=== PATIENT | male | born 1960 | race African-American/Black ===

== ENCOUNTER 2021-06-14 20:08 | Emergency (ER) | payer SELFPAY ==
[~2021-06-14 20:08] MED LIST: Iopamidol 370 76% 100 ML VIAL ONE
[2021-06-14 20:37] LABS: #Basophils 0.1 thou/uL (0.0-0.2); #Eosinphils 0.1 thou/uL (0.0-0.7); #Lymphocytes 1.5 thou/uL (1.20-3.40); #Monocytes 0.3 thou/uL (0.11-0.59); #Neutrophils 2.9 thou/uL (1.40-6.50); %Basophils 1.3 % (0.0-1.0); %Eosinophils 1.6 % (0.0-10.0); %Lymphocytes 31.1 % (21.0-51.0); %Monocytes 6.6 % (0.0-10.0); %Neutrophils 59.4 % (42.0-75.0); Hemoglobin 14.3 g/dL (14.0-18.0); Mean Corpuscular HGB CONC 34.1 g/dL (32.0-36.0); Mean Corpuscular Hemoglobin 28.9 pg (27.0-31.0); Mean Corpuscular Volume 84.8 fL (78.0-98.0); Mean Platelet Volume 8.7 fL (7.4-10.4); Platelet Count 128 thou/uL (130-400); RBC Distribution Width 13.5 % (11.5-14.5); Red Blood Cell (RBC) Count 4.95 mill/uL (4.70-6.10); White Blood Cell (WBC) Count 4.9 thou/uL (4.8-10.8)
[2021-06-14 21:02] LABS: ALT (SGPT) 13 U/L (8-55); AST (SGOT) 22 U/L (5-34); Albumin 4.2 g/dL (3.5-5.0); Alkaline Phosphatase 54 U/L (40-110); Anion Gap 12 mmol/L (10-20); BUN (Urea Nitrogen) 15 mg/dL (8.4-25.7); Bilirubin, Total 0.4 mg/dL (0.2-1.2); Calc. Creatinine Clearance 0 mL/min (70-130); Calcium 9.4 mg/dL (7.8-10.44); Carbon Dioxide 26 mmol/L (22-29); Chloride 104 mmol/L (98-107); Globulin 3.3 g/dL (2.4-3.5); Glucose 136 mg/dL (70-105); Potassium 3.6 mmol/L (3.5-5.1); Protein, Total 7.5 g/dL (6.0-8.3); Sodium 138 mmol/L (136-145)
[2021-06-14] MEDS ORDERED: Acetaminophen 500 MG TAB ONE (22:31)
== END 2021-06-15 02:36 | disposition short-term general hospital (02) ==
LOC: ERS 20:08
DX: I24.9 Acute ischemic heart disease, unspecified (principal); R42 Dizziness and giddiness; I10 Essential (primary) hypertension
CPT/HCPCS: 70450; 71045; 71275; 74174; 80053; 84484; 85025; 93005; Q9967

== ENCOUNTER 2022-06-30 11:00 | Inpatient (IN) | payer BC, SELFPAY ==
[~2022-06-30 11:00] MED LIST changes: -Iopamidol 370 76% 100 ML VIAL ONE; +Iopamidol-370 76% 500 ML 1 ML ONE
[2022-06-30 11:26] LABS: #Lymphocytes 0.8 thou/uL (1.20-3.40); #Monocytes 0.4 thou/uL (0.11-0.59); #Neutrophils 4.6 thou/uL (1.40-6.50); %Basophils 0.8 % (0.0-1.0); %Eosinophils 0.1 % (0.0-10.0); %Monocytes 6.5 % (0.0-10.0); %Neutrophils 78.7 % (42.0-75.0); Hemoglobin 14.4 g/dL (14.0-18.0); Mean Corpuscular HGB CONC 34.9 g/dL (32.0-36.0); Mean Corpuscular Hemoglobin 29.5 pg (27.0-31.0); Mean Corpuscular Volume 84.5 fl (78.0-98.0); Mean Platelet Volume 8.9 fL (7.4-10.4); Platelet Count 145 10x3/uL (130-400); RBC Distribution Width 13.9 % (11.5-14.5); Red Blood Cell (RBC) Count 4.88 mill/uL (4.70-6.10); White Blood Cell (WBC) Count 5.8 10x3/uL (4.8-10.8)
[2022-06-30 11:39] LABS: Prothrombin Time 13.6 sec (12.0-14.7)
[2022-06-30 11:47] LABS: ALT (SGPT) 8 U/L (8-55); AST (SGOT) 16 U/L (5-34); Albumin 4.2 g/dL (3.4-4.8); Alkaline Phosphatase 50 U/L (40-110); Anion Gap 13 mmol/L (10-20); BUN (Urea Nitrogen) 10 mg/dL (8.4-25.7); Bilirubin, Total 0.7 mg/dL (0.2-1.2); Calc. Creatinine Clearance 0 mL/min (70-130); Calcium 9.1 mg/dL (7.8-10.44); Carbon Dioxide 24 mmol/L (23-31); Chloride 103 mmol/L (98-107); Estimated GFR 82; Globulin 3.1 g/dL (2.4-3.5); Glucose 164 mg/dL (80-115); Lipase 104 U/L (8-78); Potassium 3.9 mmol/L (3.5-5.1); Protein, Total 7.3 g/dL (5.8-8.1); Sodium 136 mmol/L (136-145)
[2022-06-30] MEDS ORDERED: LORazepam 2 MG/ML SYR.(CARPUJECT) ONE (11:54)
[2022-06-30] MEDS ORDERED: Labetalol HCl 100 MG/20 ML VIAL ONE (11:54)
[2022-06-30] MEDS ORDERED: Ondansetron PF 4 MG/2 ML Vial ONE (11:54)
[2022-06-30] MEDS ORDERED: niCARdipine 25 MG/10 ML VIAL ONE (12:00)
[2022-06-30 12:21] LABS: PTT 129.4 sec (22.9-36.1)
[2022-06-30] MEDS ORDERED: Ondansetron ODT 4 MG TAB PO PRN (14:07)
[2022-06-30] MEDS ORDERED: Ondansetron PF 4 MG/2 ML Vial IVP PRN (14:07)
[2022-06-30 15:18] LABS: Acetaminophen Less than 10.0 mcg/mL (10.0-30.0); Alcohol Less than 10 mg/dL (Less than 10); Salicylate Less than 8.0 mg/dL (15.0-30.0)
[2022-06-30 15:22] LABS: Troponin I Less than 0.010 ng/mL (< 0.028)
[2022-06-30 20:04] LABS: Troponin I Less than 0.010 ng/mL (< 0.028)
[2022-06-30 21:20] VITALS: BMI 28.3
[2022-06-30] MEDS: Atorvastatin Calcium 40 MG TAB PO SCH (21:24)
[2022-07-01 02:56] LABS: SARS-CoV-2 NAA Rapid Test Not Detected (NotDetected)
[2022-07-01 04:12] LABS: Amphetamine Not Detected (NotDetected); Barbiturates Screen Not Detected (NotDetected); Benzodiazepine Screen Not Detected (NotDetected); Cocaine Metabolite Screen Not Detected (NotDetected); Methadone Not Detected (NotDetected); Methamphetamine Not Detected (NotDetected); Opiate Screen Not Detected (NotDetected); Oxycodone Screen Not Detected (NotDetected); Phencyclidine (PCP) Not Detected (NotDetected); THC/Cannabinoid Screen Not Detected (NotDetected); Tricyclic Screen Not Detected (NotDetected)
[2022-07-01 05:59] LABS: Hemoglobin A1c 5.5 % (4.0-6.0)
[2022-07-01 06:00] LABS: INR-International Normal Ratio 0.9; PTT 27.4 sec (22.9-36.1); Prothrombin Time 12.9 sec (12.0-14.7)
[2022-07-01 06:22] LABS: Hemoglobin 14.1 g/dL (14.0-18.0); Mean Corpuscular HGB CONC 33.7 g/dL (32.0-36.0); Mean Corpuscular Hemoglobin 29.1 pg (27.0-31.0); Mean Corpuscular Volume 86.4 fl (78.0-98.0); Platelet Count 138 10x3/uL (130-400); RBC Distribution Width 14.2 % (11.5-14.5); Red Blood Cell (RBC) Count 4.83 mill/uL (4.70-6.10); White Blood Cell (WBC) Count 4.4 10x3/uL (4.8-10.8)
[2022-07-01 06:23] LABS: Anion Gap 11 mmol/L (10-20); BUN (Urea Nitrogen) 8 mg/dL (8.4-25.7); Calc. Creatinine Clearance 87 mL/min (70-130); Calcium 9.1 mg/dL (7.8-10.44); Carbon Dioxide 26 mmol/L (23-31); Cardiac Risk 5.3 (Less than 4.5); Chloride 106 mmol/L (98-107); Cholesterol 197 mg/dl (< 200 Desired); Estimated GFR 76; Glucose 98 mg/dL (80-115); HDL Cholesterol 37 mg/dL (>60 Neg Risk); LDL Cholesterol, Calculated 142 mg/dL; Potassium 3.8 mmol/L (3.5-5.1); Sodium 139 mmol/L (136-145); Triglycerides 92 mg/dL (Less than 150)
[2022-07-01 06:48] LABS: Band 2 % (5-11); Eosinophils 1 % (0-10); Lymphocytes 35 % (21-51); MDiff Complete? YES; Monocytes 8 % (0-10); Neutrophil 54 % (42-75); RBC Morphology Normal
[2022-07-01] MEDS ORDERED: Aspirin 81 mg Enteric Coated Tablet PO SCH (09:00)
[2022-07-01] MEDS: Acetaminophen 325 MG TAB PO PRN (11:09)
[2022-07-01] MEDS: Aspirin 81 mg Enteric Coated Tablet PO SCH (11:10)
[2022-07-01] MEDS: Amlodipine 10 MG TAB PO SCH (11:10)
[2022-07-01] MEDS: Lisinopril 20 MG TAB PO SCH (11:10)
[2022-07-01] MEDS: Atorvastatin Calcium 40 MG TAB PO SCH (21:12)
[2022-07-02 05:49] LABS: Anion Gap 10 mmol/L (10-20); BUN (Urea Nitrogen) 10 mg/dL (8.4-25.7); Calc. Creatinine Clearance 88 mL/min (70-130); Calcium 8.9 mg/dL (7.8-10.44); Carbon Dioxide 26 mmol/L (23-31); Estimated GFR 77; Glucose 120 mg/dL (80-115); Potassium 3.6 mmol/L (3.5-5.1); Sodium 136 mmol/L (136-145)
[2022-07-02 06:00] LABS: Chloride 104 mmol/L (98-107)
[2022-07-02 07:08] LABS: Band 2 % (5-11); Eosinophils 3 % (0-10); Lymphocytes 59 % (21-51); MDiff Complete? YES; Mean Corpuscular HGB CONC 34.2 g/dL (32.0-36.0); Mean Corpuscular Hemoglobin 29.3 pg (27.0-31.0); Mean Corpuscular Volume 85.8 fl (78.0-98.0); Mean Platelet Volume 8.8 fL (7.4-10.4); Monocytes 5 % (0-10); Neutrophil 31 % (42-75); Platelet Count 139 10x3/uL (130-400); RBC Morphology Normal; Red Blood Cell (RBC) Count 4.78 mill/uL (4.70-6.10); White Blood Cell (WBC) Count 4.4 10x3/uL (4.8-10.8)
[2022-07-02] MEDS: Lisinopril 20 MG TAB PO SCH (10:29)
[2022-07-02] MEDS: Amlodipine 10 MG TAB PO SCH (10:29)
[2022-07-02] MEDS: Aspirin 81 mg Enteric Coated Tablet PO SCH (10:30)
[2022-07-02] MEDS ORDERED: Clopidogrel Bisulfate 75 MG TAB PO SCH (13:00)
[2022-07-02] MEDS ORDERED: Lisinopril 10 MG TAB PO SCH (13:00)
[2022-07-02] MEDS: Acetaminophen 325 MG TAB PO PRN (14:02)
[2022-07-02] MEDS: Atorvastatin Calcium 40 MG TAB PO SCH (20:45)
[2022-07-03] MEDS ORDERED: Spironolactone 25 MG TAB PO SCH (08:00)
[2022-07-03 08:12] VITALS: TEMP 97.9
[2022-07-03] MEDS: Amlodipine 10 MG TAB PO SCH (08:45)
[2022-07-03] MEDS: Aspirin 81 mg Enteric Coated Tablet PO SCH (08:45)
[2022-07-03 08:49] VITALS: BP 163/93
[2022-07-03] MEDS ORDERED: Hydrochlorothiazide 25 MG TAB PO SCH (09:00)
[2022-07-03] MEDS ORDERED: Lisinopril 20 MG TAB PO SCH (09:00)
[2022-07-03] MEDS ORDERED: Clopidogrel Bisulfate 75 MG TAB PO SCH (09:00)
== END 2022-07-03 11:25 | disposition home or self-care (01) | DRG 79 ==
LOC: ERS 11:00 → ERHOLD 13:35 → NEURO 20:40
PROVIDERS: ADMIT Internal Medicine; ATTEND Internal Medicine
DX: I67.4 Hypertensive encephalopathy (principal); Z20.822 Contact with and (suspected) exposure to COVID-19; N18.2 Chronic kidney disease, stage 2 (mild); I16.0 Hypertensive urgency; R79.89 Other specified abnormal findings of blood chemistry; I12.9 Hypertensive chronic kidney disease with stage 1 through stage 4 chronic kidney disease, or unspecified chronic kidney disease; D72.819 Decreased white blood cell count, unspecified; Z91.14 Patient's other noncompliance with medication regimen; Z79.899 Other long term (current) drug therapy; Z79.82 Long term (current) use of aspirin; Z79.02 Long term (current) use of antithrombotics/antiplatelets
CPT/HCPCS: 36415; 36416; 70450; 70496; 70498; 70551; 71045; 80048; 80053; 80061; 80143; 80179; 80306; 80307; 83036; 83690; 83735; 83880; 84484; 85025; 85610; 85730; 93005; 94760; J2060; J2405; Q9967

== ENCOUNTER 2022-11-08 21:03 | Emergency (ER) | payer OTHER, BC ==
[2022-11-09] MEDS ORDERED: Acetaminophen 500 MG TAB ONE (02:19)
[2022-11-09] MEDS ORDERED: Ibuprofen 200 MG TAB ONE (02:19)
== END 2022-11-09 02:23 | disposition home or self-care (01) ==
LOC: ERS 21:03
DX: S06.0X0A Concussion without loss of consciousness, initial encounter (principal); I10 Essential (primary) hypertension; V43.52XA Car driver injured in collision with other type car in traffic accident, initial encounter; W22.11XA Striking against or struck by driver side automobile airbag, initial encounter; Z86.73 Personal history of transient ischemic attack (TIA), and cerebral infarction without residual deficits
CPT/HCPCS: 70450; 70486; 72125